=== PATIENT | female | born 2000 | race Caucasian/White ===

== ENCOUNTER 2022-05-23 20:45 | Emergency (ER) | payer OTHER ==
[2022-05-23] MEDS ORDERED: Sodium Chloride 0.9% 1,000 ML IV ONE (20:56)
[2022-05-23] MEDS ORDERED: Ondansetron 4 MG/2 ML SDV IVPUSH ONE (20:57)
[2022-05-23] MEDS ORDERED: Sodium Chloride 0.9% 10 ML Syringe FLUSH PRN (20:58)
[2022-05-23 21:47] LABS: ANION GAP 13.6 mmol/L (5-15); CHLORIDE,CL 104 mmol/L (98-107); SODIUM,NA 139 mmol/L (136-145)
[2022-05-23 21:48] LABS: ESTIMATED GFR 109 mL/min (>=60)
[2022-05-23] MEDS ORDERED: Pantoprazole 40 MG Vial IVPUSH ONE (21:56)
[2022-05-23] MEDS ORDERED: Alum Hydrox/Mag Hydrox/Simeth 30 ML, Lidocaine 2% 15 ML PO ONE ×2 (21:56)
[2022-05-23] MEDS ORDERED: Famotidine 20 MG/2 ML SDV IVPUSH ONE (22:34)
== END 2022-05-23 23:15 | disposition home or self-care (01) ==
LOC: KA.ED 20:45
DX: K21.9 Gastro-esophageal reflux disease without esophagitis (principal); R11.0 Nausea; Z88.0 Allergy status to penicillin; Z88.8 Allergy status to other drugs, medicaments and biological substances; Z20.822 Contact with and (suspected) exposure to COVID-19
CPT/HCPCS: 36415; 80053; 81003; 82150; 83605; 83690; 84703; 85025; 86140; 96361; 96374; 96375; 99284; 99284-25; A9270-GY; C9113; J2405; J3490; J7030; U0002

== ENCOUNTER 2024-04-02 17:21 | Emergency (ER) | payer OTHER | END 2024-04-02 18:50 | disposition home or self-care (01) | LOC: KA.ED 17:21 | DX: M54.41 Lumbago with sciatica, right side (principal); M54.42 Lumbago with sciatica, left side; M53.3 Sacrococcygeal disorders, not elsewhere classified; K21.9 Gastro-esophageal reflux disease without esophagitis; Z88.0 Allergy status to penicillin; Z88.8 Allergy status to other drugs, medicaments and biological substances; Z79.899 Other long term (current) drug therapy | CPT/HCPCS: 72080; 72202; 99283; 99284 ==